=== PATIENT | male | born 1940 | race Two or more races ===

== ENCOUNTER 2017-10-03 07:48 | Inpatient (IN) | payer MEDICARE, MEDICAID ==
[~2017-10-03] VITALS: Ht 154.9 cm; Wt 56.7 kg
[~2017-10-03 07:48] MED LIST: ATOR10TA PO; CYCL0.05 OP; FER325T PO; FLUT250M2 INH; FOLI1TAB6 PO; GLIP-115 PO; IPRIH IN; LEVAAER4 IN; LEVO500T21 PO; METF-489 PO; METH2.5T3 PO; NAPR500T31 PO; OME20T PO
[2017-10-03 08:38] LABS: Basophils # (auto) 0.1 uL; Basophils % (auto) 1.3 % (0.0-2.0); Eosinophils # (auto) 0.3 uL; Eosinophils % (auto) 3.6 % (0.0-7.0); Hematocrit 37.9 % (41.0-53.0); Hemoglobin 13.3 g/dL (13.5-17.5); Lymphocytes # (auto) 1.3 uL; Lymphocytes % (auto) 14.4 % (10.0-50.0); Mean Corpuscular Hemoglobin 30.9 pg (28.0-32.0); Mean Corpuscular Volume 88.3 fL (80.0-100.0); Neutrophils % (auto) 68.7 % (37.0-80.0); Platelet Count (auto) 188 10^3/uL (140-450); Red Blood Cells 4.29 10^6/uL (4.5-5.90); Red Cell Distribution Width 14.1 % (11.8-14.3); White Blood Cell 8.7 10^3/uL (4.4-10.8)
[2017-10-03] MEDS ORDERED: SODIUM CHLORIDE 0.9% 1,000 ML IV ONE (08:49)
[2017-10-03 09:39] LABS: INR 1.1 (0.9-1.15); Partial Thromboplastin Time 28.9 sec (22.64-33.71)
[2017-10-03 09:40] LABS: Alanine Aminotransferase 10 U/L (16-61); Albumin 3.5 g/dL (3.4-5.0); Anion Gap 8 (5-15); Blood Urea Nitrogen 18 mg/dL (7-18); Calcium 9.4 mg/dL (8.5-10.1); Carbon Dioxide 25 mmol/L (21-32); Chloride 101 mmol/L (98-107); GFR African American 75 mL/min; GFR Non-African American 62 mL/min; Glucose 171 mg/dL (74-106); Magnesium 1.5 mg/dL (1.6-2.6); Potassium 3.7 mmol/L (3.5-5.1); Sodium 134 mmol/L (136-145)
[2017-10-03 09:45] LABS: Alkaline Phosphatase 117 U/L (45-117); Bilirubin, Total 1.3 mg/dL (0.2-1.0); Total Protein 7.5 g/dL (6.4-8.2)
[2017-10-03 10:18] LABS: Aspartate Aminotransferase 14 U/L (15-37)
[2017-10-03 10:42] LABS: Urine Bacteria NONE SEEN /hpf (None Seen); Urine Blood TRACE /uL (Negative); Urine Hyaline Cast FEW /lpf (0 - 2); Urine Mucus FEW (None Seen); Urine Specific Gravity 1.022 (1.001-1.035); Urine WBC 2 /hpf (0 - 3)
[2017-10-03] MEDS ORDERED: MAGNESIUM SULFATE 1GM/100ML 100 ML IV ONE (10:45)
[2017-10-03] MEDS ORDERED: DEXTROSE (50%) 50ML SYRG IV PRN (10:45)
[2017-10-03] MEDS ORDERED: ASPirin-EC 81 mg tab PO ONE (10:45)
[2017-10-03] MEDS ORDERED: GABA100C9 PO (10:59)
[2017-10-03] MEDS ORDERED: HYDROcodone-ACET 5/325MG TAB PO PRN (11:00)
[2017-10-03] MEDS ORDERED: MORPHINE SULFATE 4 MG/ML SYR/VIAL IV PRN ×2 (11:00)
[2017-10-03] MEDS ORDERED: NAPROXEN 500 MG TAB PO PRN (11:00)
[2017-10-03] MEDS ORDERED: DOCUSATE SOD 100 MG CAP PO PRN (11:00)
[2017-10-03] MEDS ORDERED: NITROGLYCERIN 0.4 MG SL TAB SL PRN (11:00)
[2017-10-03] MEDS ORDERED: TEMAZEPAM 15 MG CAP PO PRN (11:00)
[2017-10-03] MEDS ORDERED: ONDANSETRON HCL 4 MG/2 ML VIAL IV PRN (11:00)
[2017-10-03] MEDS ORDERED: ACETAMINOPHEN 325 MG TAB PO PRN (11:00)
[2017-10-03] MEDS ORDERED: METHOTREXATE 2.5 MG TAB PO SCH (11:00)
[2017-10-03] MEDS ORDERED: cefTRIAXone 1GM/10ml IVPUSH 10 ML IV ONE (11:30)
[2017-10-03] MEDS: ACCU-CHEK COMFORT CURVE STRIP VI SCH ×3 (12:00→23:04)
[2017-10-03] MEDS: IPRATROPIUM BROM 0.5 MG/2.5ML INH SOL NEB SCH ×2 (12:05→19:41)
[2017-10-03] MEDS: ALBUTEROL SULF 2.5 MG/0.5ML(0.5%) NEB SOLN NEB SCH ×2 (12:05→19:41)
[2017-10-03] MEDS: MAGNESIUM SULFATE 1GM/100ML 100 ML IV SCH ×2 (12:30→14:31)
[2017-10-03] MEDS: InsuLIN REG 1unit/0.01ml Soln (100units/ml) SC SCH ×3 (13:25→22:00)
[2017-10-03 13:39] VITALS: BP 165/88
[2017-10-03] MEDS: SODIUM CHLOR 0.9% PF (SALINE LOCK) 10ML VIAL IV SCH ×2 (14:00→23:03)
[2017-10-03] MEDS: GABAPENTIN 100 MG CAP PO SCH ×2 (15:13→23:03)
[2017-10-03] MEDS: RESTASIS OP SCH ×2 (15:14→22:00)
[2017-10-03] MEDS: EYE OP SCH ×2 (15:14→22:00)
[2017-10-03] MEDS ORDERED: LORazepam 2MG/ML-1ML VIAL IV PRN (16:45)
[2017-10-03 17:13] VITALS: BP 137/83
[2017-10-03 17:25] LABS: Cholesterol 91 mg/dL (< 200); HDL Cholesterol 42 mg/dL (40-59); LDL Cholesterol 51 mg/dL (< 100); Triglycerides 66 mg/dL (< 150)
[2017-10-03] MEDS: FAMOTIDINE 20 MG TAB PO SCH (17:44)
[2017-10-03] MEDS: glipiZIDE 5 MG TAB PO SCH (17:45)
[2017-10-03] MEDS: BUDESONIDE (INHALATION) 0.5 MG/2 ML NEB NEB SCH (19:41)
[2017-10-03 22:00] VITALS: BP 132/74
[2017-10-03] MEDS ORDERED: ATORVASTATIN 20 MG TAB PO SCH (22:00)
[2017-10-03] MEDS: ATORVASTATIN 20 MG TAB PO SCH (23:03)
[2017-10-04] MEDS: IPRATROPIUM BROM 0.5 MG/2.5ML INH SOL NEB SCH ×4 (00:40→19:16)
[2017-10-04] MEDS: ALBUTEROL SULF 2.5 MG/0.5ML(0.5%) NEB SOLN NEB SCH ×3 (00:41→12:01)
[2017-10-04 05:20] VITALS: BP 132/73
[2017-10-04] MEDS: RESTASIS OP SCH ×3 (05:37→22:00)
[2017-10-04] MEDS: EYE OP SCH ×3 (05:37→22:00)
[2017-10-04] MEDS: BUDESONIDE (INHALATION) 0.5 MG/2 ML NEB NEB SCH ×2 (05:59→19:16)
[2017-10-04 06:49] LABS: Basophils # (auto) 0 uL; Basophils % (auto) 0.5 % (0.0-2.0); Eosinophils # (auto) 0.4 uL; Eosinophils % (auto) 4.6 % (0.0-7.0); Hematocrit 37.9 % (41.0-53.0); Hemoglobin 13.4 g/dL (13.5-17.5); Lymphocytes # (auto) 1.1 uL; Lymphocytes % (auto) 13.7 % (10.0-50.0); Mean Corpuscular Hemoglobin 31.1 pg (28.0-32.0); Mean Corpuscular Hgb Conc. 35.4 g/dL (32.0-36.0); Mean Corpuscular Volume 87.8 fL (80.0-100.0); Monocytes % (auto) 12.7 % (0.0-12.0); Neutrophils # (auto) 5.4 uL; Neutrophils % (auto) 68.5 % (37.0-80.0); Nucleated Red Blood Cells % 0.7 %; Platelet Count (auto) 186 10^3/uL (140-450); Red Blood Cells 4.32 10^6/uL (4.5-5.90); White Blood Cell 7.8 10^3/uL (4.4-10.8)
[2017-10-04] MEDS: glipiZIDE 5 MG TAB PO SCH ×2 (07:01→17:23)
[2017-10-04] MEDS: GABAPENTIN 100 MG CAP PO SCH ×3 (07:01→22:21)
[2017-10-04] MEDS: SODIUM CHLOR 0.9% PF (SALINE LOCK) 10ML VIAL IV SCH ×3 (07:01→22:19)
[2017-10-04] MEDS: ACCU-CHEK COMFORT CURVE STRIP VI SCH ×4 (07:01→20:45)
[2017-10-04] MEDS: InsuLIN REG 1unit/0.01ml Soln (100units/ml) SC SCH ×4 (07:02→22:00)
[2017-10-04 07:03] LABS: Albumin 3.1 g/dL (3.4-5.0); BUN/Creatinine Ratio 13.3; Calcium 8.5 mg/dL (8.5-10.1); Potassium 3.9 mmol/L (3.5-5.1)
[2017-10-04 09:00] VITALS: BP 111/69
[2017-10-04] MEDS: MULTIPLE VITAMIN TAB PO SCH (09:12)
[2017-10-04] MEDS: ASPirin-EC 81 mg tab PO SCH (09:12)
[2017-10-04] MEDS: FERROUS SULFATE 325 MG TAB PO SCH (09:12)
[2017-10-04] MEDS: B-COMPLEX W/ C & FOLIC ACID(NEPHROVITE TAB) PO SCH (09:12)
[2017-10-04] MEDS: FAMOTIDINE 20 MG TAB PO SCH (09:12)
[2017-10-04] MEDS: PANTOPRAZOLE 40 MG TAB PO SCH (09:12)
[2017-10-04] MEDS: ENOXAPARIN SOD 40 MG/0.4 ML SYRINGE SC SCH (09:13)
[2017-10-04 13:00] VITALS: BP 107/70
[2017-10-04] MEDS ORDERED: OPTISON 3ml Vial for INJ IV ONE (15:48)
[2017-10-04 17:00] VITALS: BP 132/74
[2017-10-04 22:00] VITALS: BP 124/78
[2017-10-04] MEDS: CARVEDILOL 3.125 MG TAB PO SCH (22:20)
[2017-10-04] MEDS: ATORVASTATIN 20 MG TAB PO SCH (22:21)
[2017-10-05] MEDS: IPRATROPIUM BROM 0.5 MG/2.5ML INH SOL NEB SCH ×3 (00:07→12:35)
[2017-10-05 05:28] VITALS: BP 147/63
[2017-10-05] MEDS: EYE OP SCH ×2 (05:32→13:55)
[2017-10-05] MEDS: RESTASIS OP SCH ×2 (05:32→13:55)
[2017-10-05] MEDS: GABAPENTIN 100 MG CAP PO SCH ×2 (06:00→14:06)
[2017-10-05] MEDS: SODIUM CHLOR 0.9% PF (SALINE LOCK) 10ML VIAL IV SCH ×2 (06:57→13:55)
[2017-10-05] MEDS: ACCU-CHEK COMFORT CURVE STRIP VI SCH ×2 (06:57→11:41)
[2017-10-05] MEDS: InsuLIN REG 1unit/0.01ml Soln (100units/ml) SC SCH ×2 (06:57→11:41)
[2017-10-05] MEDS: glipiZIDE 5 MG TAB PO SCH (06:57)
[2017-10-05 07:05] LABS: Basophils # (auto) 0 uL; Basophils % (auto) 0.5 % (0.0-2.0); Eosinophils # (auto) 0.3 uL; Eosinophils % (auto) 3.7 % (0.0-7.0); Hematocrit 37.8 % (41.0-53.0); Hemoglobin 13.3 g/dL (13.5-17.5); Lymphocytes # (auto) 0.9 uL; Lymphocytes % (auto) 11.3 % (10.0-50.0); Mean Corpuscular Hemoglobin 30.9 pg (28.0-32.0); Mean Corpuscular Volume 88.1 fL (80.0-100.0); Monocytes # (auto) 0.9 uL; Monocytes % (auto) 10.8 % (0.0-12.0); Neutrophils # (auto) 6.1 uL; Neutrophils % (auto) 73.7 % (37.0-80.0); Nucleated Red Blood Cells % 0.2 %; Platelet Count (auto) 208 10^3/uL (140-450); Red Cell Distribution Width 13.9 % (11.8-14.3); White Blood Cell 8.2 10^3/uL (4.4-10.8)
[2017-10-05 07:17] LABS: BUN/Creatinine Ratio 13.8; Calcium 8.8 mg/dL (8.5-10.1)
[2017-10-05] MEDS: BUDESONIDE (INHALATION) 0.5 MG/2 ML NEB NEB SCH (07:21)
[2017-10-05 08:16] VITALS: BP 135/76
[2017-10-05] MEDS: ENOXAPARIN SOD 40 MG/0.4 ML SYRINGE SC SCH (09:03)
[2017-10-05] MEDS: FAMOTIDINE 20 MG TAB PO SCH (09:04)
[2017-10-05] MEDS: PANTOPRAZOLE 40 MG TAB PO SCH (09:04)
[2017-10-05] MEDS: B-COMPLEX W/ C & FOLIC ACID(NEPHROVITE TAB) PO SCH (09:04)
[2017-10-05] MEDS: CARVEDILOL 3.125 MG TAB PO SCH (09:05)
[2017-10-05] MEDS: FERROUS SULFATE 325 MG TAB PO SCH (09:06)
[2017-10-05] MEDS: ASPirin-EC 81 mg tab PO SCH (09:06)
[2017-10-05] MEDS: MULTIPLE VITAMIN TAB PO SCH (09:07)
[2017-10-05] MEDS ORDERED: LISINOPRIL 5 MG TAB PO SCH (10:00)
[2017-10-05 11:58] VITALS: BP 137/69
[2017-10-05 13:37] VITALS: BP 137/69
== END 2017-10-05 16:10 | disposition home health service (06) | DRG 45 ==
LOC: ER 07:48 → TELE 07:49 → TELE-CENTR 16:08
PROVIDERS: ADMIT Internal Medicine; ATTEND Internal Medicine
DX: I63.9 Cerebral infarction, unspecified (principal); E11.21 Type 2 diabetes mellitus with diabetic nephropathy; E11.65 Type 2 diabetes mellitus with hyperglycemia; E87.1 Hypo-osmolality and hyponatremia; D63.8 Anemia in other chronic diseases classified elsewhere; E11.22 Type 2 diabetes mellitus with diabetic chronic kidney disease; N39.0 Urinary tract infection, site not specified; G47.00 Insomnia, unspecified; K59.00 Constipation, unspecified; R26.89 Other abnormalities of gait and mobility; K21.9 Gastro-esophageal reflux disease without esophagitis; M19.90 Unspecified osteoarthritis, unspecified site; G81.94 Hemiplegia, unspecified affecting left nondominant side; E78.5 Hyperlipidemia, unspecified; E83.42 Hypomagnesemia; J44.9 Chronic obstructive pulmonary disease, unspecified; N18.2 Chronic kidney disease, stage 2 (mild); Z79.899 Other long term (current) drug therapy; Z83.3 Family history of diabetes mellitus; Z87.442 Personal history of urinary calculi; Z85.46 Personal history of malignant neoplasm of prostate; Z85.51 Personal history of malignant neoplasm of bladder
CPT/HCPCS: 36415; 70450; 70551; 71046; 80048; 80053; 80061; 81001; 82962; 83036; 83735; 83880; 84443; 84484; 85025; 85610; 85730; 92610; 93005; 93306; 93886; 94640; 94761; 96361; 96365; 96375; 97163; J1815; Q9956

== ENCOUNTER 2018-03-27 14:51 | Emergency (ER) | payer MEDICARE, MEDICAID ==
[~2018-03-27] VITALS: Ht 165.1 cm; Wt 54.4 kg
[~2018-03-27 14:51] MED LIST changes: +GABA100C9 PO; -LEVO500T21 PO; -NAPR500T31 PO
[2018-03-27 15:03] VITALS: BP 131/80
[2018-03-27 16:11] LABS: Basophils # (auto) 0 uL; Basophils % (auto) 0.3 % (0.0-2.0); Eosinophils # (auto) 0.1 uL; Eosinophils % (auto) 1.2 % (0.0-7.0); Hematocrit 41.9 % (41.0-53.0); Hemoglobin 14.1 g/dL (13.5-17.5); Lymphocytes # (auto) 0.6 uL; Mean Corpuscular Hemoglobin 30.7 pg (28.0-32.0); Mean Corpuscular Hgb Conc. 33.7 g/dL (32.0-36.0); Mean Corpuscular Volume 91.2 fL (80.0-100.0); Monocytes # (auto) 0.8 uL; Monocytes % (auto) 7.1 % (0.0-12.0); Neutrophils # (auto) 9.6 uL; Neutrophils % (auto) 86.4 % (37.0-80.0); Nucleated Red Blood Cells % 0.1 %; Platelet Count (auto) 144 10^3/uL (140-450); Red Cell Distribution Width 14.7 % (11.8-14.3); White Blood Cell 11.1 10^3/uL (4.4-10.8)
[2018-03-27 16:23] LABS: Alanine Aminotransferase 11 U/L (16-61); Albumin 3.5 g/dL (3.4-5.0); Anion Gap 11 (5-15); Aspartate Aminotransferase 6 U/L (15-37); BUN/Creatinine Ratio 18.5; Blood Urea Nitrogen 17 mg/dL (7-18); Calcium 8.4 mg/dL (8.5-10.1); Carbon Dioxide 23 mmol/L (21-32); Chloride 102 mmol/L (98-107); GFR African American 102 mL/min; GFR Non-African American 84 mL/min; Glucose 198 mg/dL (74-106); Potassium 3.9 mmol/L (3.5-5.1); Sodium 136 mmol/L (136-145)
[2018-03-27 16:28] LABS: Alkaline Phosphatase 75 U/L (45-117); Bilirubin, Total 0.6 mg/dL (0.2-1.0); Total Protein 6.8 g/dL (6.4-8.2)
== END 2018-03-27 16:35 | disposition left against medical advice (07) ==
LOC: EDBD 14:51 → ER 14:51
DX: R53.1 Weakness (principal); Z53.21 Procedure and treatment not carried out due to patient leaving prior to being seen by health care provider
CPT/HCPCS: 36415; 80053; 84484; 85025